=== PATIENT | male | born 1975 | race Caucasian/White ===

== ENCOUNTER 2024-06-24 09:34 | Emergency (ER) | payer OTHER, SELFPAY ==
[2024-06-24 09:36] VITALS: BP 159/99
[2024-06-24 09:42] VITALS: BMI 31.7
--- NOTE | 2024-06-24 09:51 | ED.GENMED ---
History of Present Illness
General
Chief Complaint: Chest Pain
Source: patient
Exam Limitations: none
Time Seen by Provider: 06/24/24 09:43
History of Present Illness
History of Present Illness:
See MDM
Past History
Past History
ED Past Medical History: HTN
ED Past Surgical History: None
Social History
Tobacco: Non-smoker
Alcohol: None
Phy Exam
Physical Exam
Physical Exam:
See MDM
Scores
Heart Score for Chest Pain Patients
STEMI patient?: No
History: Slightly or Non-Suspicious
ECG: Normal
Age: >45 - <65 years
Risk Factors: No Risk Factors
Troponin: >1 - <3 x Normal Limit
Heart Score for Chest Pain Patients: 2
Heart Score Risk: 2.5% MACE over next 6 weeks
Course
Orders/Labs/Results
Orders:
Orders
06/24/24 09:37
ECG [Electrocardiogram (*1)] Urgent
Reason for Study: Chest Pain
EKG- Treatment ONCE
06/24/24 09:47
Ketorolac [Toradol] 30 mg IV NOW STA
CR Chest - 2 Views Urgent
Comment:
Reason For Exam: Central chest pain
06/24/24 09:54
Complete Blood Count/With Diff Urgent
Comprehensive Metabolic Panel Urgent
Troponin I Urgent
Abnormal Lab Results
06/24/24
09:54
Abs Immat Gran (auto) 0.1 H 10^3/uL
(0-0.05)
Absolute Lymphs (auto) 1.1 L 10^3/uL
(1.2-3.4)
Immature Gran % 1.2 H %
(0-0.5)
Chloride 108 H mmol/L
(98-107)
BUN 23 H mg/dl
(9-20)
Glucose 112 H mg/dl
(70-99)
ALT 59 H U/L
(0-50)
06/24/24 09:54
06/24/24 09:54
Vital Signs
Initial and Last Documented VS:
Initial Vital Signs
Temp Pulse Resp BP Pulse Ox
98.9 F 72 16 159/99 100
06/24/24 09:36 06/24/24 09:36 06/24/24 09:36 06/24/24 09:36 06/24/24 09:36
Last Documented Vital Signs
Temp Pulse Resp BP Pulse Ox
98.9 F 72 12 141/91 98
06/24/24 09:36 06/24/24 11:00 06/24/24 11:00 06/24/24 11:00 06/24/24 11:00
MDM/Problems Addressed
Differential Diagnosis Includes:
HPI and MDM Narrative:
48-year-old male presenting for evaluation of left central chest pain. This has been ongoing for the past several days or so. He was contemplating whether or not to get it checked out but he started to get nervous so he went to urgent care. They
sent him into the emergency department for further evaluation. Patient exercises often and denies any exertional component. He denies any pain with movement. He does admit that he has a nervous cough. We discussed the possibility of
costochondritis given that the pain is reproducible to the left costochondral joints. Will give dose of Toradol and obtain chest x-ray. Screening EKG nonischemic. Given duration of symptoms, will obtain troponin
Physical exam
General: Well appearing and non-toxic
HEENT: protecting airway
Neck: appears supple
CV: No evidence of cyanosis. Regular rate and rhythm
Chest: Mild tenderness to left costochondral joints
Resp: No accessory muscle use. Lungs clear
Abd: Non-distended
Extremities: No deformities
Neuro: alert
Psych: Normal affect
Skin: Intact
Problems Addressed including Acute and Chronic Conditions affecting care:
1. Chest pain
Acuity: acute
Prognosis: stable
Details: Likely in setting of costochondritis. EKG nonischemic. Will obtain chest x-ray. Doubt ACS given duration of symptoms
Updates
Chest x-ray clear. Troponin normal. Discussed follow-up with PCP
Differential Diagnosis (but not limited to): Costochondritis, noncardiac chest pain
Testing considered: 2 troponin rule out but doubt ACS given duration of symptoms if initial troponin is negative
Drug therapy (if applicable): OTC meds, please see d/c instruction regarding Rx drugs
Amount and/or Complexity of Data Reviewed
Clinical info obtained from: Patient
External data reviewed: N/A
Labs I independently reviewed (but not limited to): Troponin normal
Radiology: X-ray independently reviewed: Chest x-ray clear
Pulse Ox: not hypoxic
EKG independently reviewed: Sinus rhythm, normal axis, no STEMI
Balloon Seller: Sinus rhythm
Critical Care: N/A
Risk of Complication:
Social Determinants of health: Good social support
Discussed with other providers: N/A
Escalation of Care includes Admit/Obs: After being observed in the Emergency Department, pt stable for discharge.
Occasional wrong word or 'sound a like' substitutions may have occurred due to the inherent limitations of voice recognition software. Read the chart carefully and recognize, using context, where substitutions have occurred.
*Critical Care Note
Total Time (30-74mins, 75-104mins- exclusive of procedures): Not Applicable
ED Attending Note
-
Portions of this chart may have been created with voice recognition software.� Occasional wrong word or��sound alike� substitutions may have occurred due to the inherent limitations of voice recognition software.
Discharge Plan
Departure
Patient Disposition: Home (Routine Discharge)
Date of Disposition: 06/24/24
Time of Disposition: 11:09
Patient with high blood pressure during this ER visit?: Yes
Discharge Problem:
Costochondritis
Instructions: Chest Pain PCP Follow Up, BLOOD PRESSURE
Referrals:
Guerline Wolfe DO [Family Provider] -
Activity Restrictions/Additional Instructions:
Please return for any worsening symptoms.
You may return at any time if you have further concerns.
Please follow up with your doctor at the first available appointment, preferably this week.
Thank you for choosing [facility].
Interventions
Interventions:
*Risk Screen - Suicide Last Done: 06/24/24 09:49
*General Assessment Last Done: 06/24/24 09:42
*Neglect/Abuse Screening Last Done: 06/24/24 09:42
*ED- Fall Risk Assessment Last Done: 06/24/24 09:49
ED- Cardiac Assessment Last Done: 06/24/24 09:47
Discharge Date and Time
Print Language: SWEDISH
[2024-06-24] MEDS: TORADOL 30 MG IV (09:57)
[2024-06-24 10:00] VITALS: BP 139/114
[2024-06-24 10:01] LABS: % Basophils 1.2 % (0-2); % Eosinophils 3.7 % (0-6); % Immature Granulocytes 1.2 % (0-0.5); % Lymphocytes 22.7 % (20.5-51.1); % Monocytes 8.9 % (1.7-9.3); % Neutrophils 62.3 % (42.2-75.2); Absolute Basophils 0.1 10^3/uL (0-0.2); Absolute Eosinophils 0.2 10^3/uL (0-0.7); Absolute Immature Granulocytes 0.1 10^3/uL (0-0.05); Absolute Lymphocytes 1.1 10^3/uL (1.2-3.4); Absolute Monocytes 0.4 10^3/uL (0.1-0.6); Absolute Neutrophils 3.1 10^3/uL (1.4-6.5); Hematocrit 43.6 % (39.0-52.0); Hemoglobin 15.3 g/dL (13.0-18.0); Mean Corp Hgb Conc. 35.1 g/dL (33.0-37.0); Mean Corpuscular Volume 82.7 fL (80.0-94.0); Mean Platelet Volume 10.4 fL (7.4-10.4); Nucleated Red Blood Cells % 0 % (-); Platelet Count 184 10^3/uL (130-400); Red Blood Cell Count 5.27 10^6/uL (4.70-6.10); Red Cell Dist. Width 12.5 % (11.5-14.5); White Blood Cell Count 4.9 10^3/uL (4.8-10.8)
[2024-06-24 10:14] LABS: ALT (SGPT) 59 U/L (0-50); AST (SGOT) 36 U/L (17-59); Alkaline Phosphatase 59 U/L (38-126); Blood Urea Nitrogen 23 mg/dl (9-20); Calcium 9.8 mg/dl (8.4-10.2); Carbon Dioxide 24 mmol/L (22-30); Chloride 108 mmol/L (98-107); Estimated Creatinine Clearance > 125 ml/min; Glucose 112 mg/dl (70-99); Potassium 4.8 mmol/L (3.5-5.1); Sodium 144 mmol/L (135-145); Total Bilirubin 0.6 mg/dl (0.2-1.3); Total Protein 8.2 g/dl (6.3-8.2); eGFR > 60.00
[2024-06-24 10:25] LABS: Troponin I 0.017 ng/ml
[2024-06-24 11:00] VITALS: BP 141/91
== END 2024-06-24 11:38 | disposition home or self-care (01) ==
LOC: EMR 09:34
PROVIDERS: EMERGENCY PHYSICIAN Student in an Organized Health Care Education/Training Program; FAMILY PHYSICIAN Internal Medicine
DX: M94.0 Chondrocostal junction syndrome [Tietze] (principal); I10 Essential (primary) hypertension
CPT/HCPCS: 96374; 99285; 71046; 80053; 84484; 85025; 93005

== ENCOUNTER → 2024-09-06 12:37 | Outpatient (REF) | payer OTHER, SELFPAY | LOC: PAVMRI 12:37 | PROVIDERS: ATTENDING PHYSICIAN Orthopaedic Surgery; FAMILY PHYSICIAN Internal Medicine | DX: M25.569 Pain in unspecified knee (principal); M25.561 Pain in right knee | CPT/HCPCS: 73721 ==

== ENCOUNTER → 2024-11-24 08:23 | Outpatient (REF) | payer OTHER, SELFPAY | LOC: RCS 08:23 | PROVIDERS: ATTENDING PHYSICIAN Internal Medicine Cardiovascular Disease; FAMILY PHYSICIAN Internal Medicine | DX: R00.2 Palpitations (principal); R94.31 Abnormal electrocardiogram [ECG] [EKG]; R07.89 Other chest pain | CPT/HCPCS: 93017; 93350 ==

== ENCOUNTER → 2025-01-30 08:06 | Outpatient (REF) | payer OTHER, SELFPAY | LOC: RCS 08:06 | PROVIDERS: ATTENDING PHYSICIAN Internal Medicine Cardiovascular Disease | DX: R00.2 Palpitations (principal) | CPT/HCPCS: 93225; 93226 ==